=== PATIENT | female | born 1945 | race Caucasian/White ===

== ENCOUNTER → 2018-04-09 | Outpatient (CLI) | payer OTHER ==
[~2018-04-09] MED LIST: CATAPRES0.2 MG PO; CO Q-10200 MG PO; GLUCOPHAGE850 MG PO; HYDROCHLOROTHIA25 MG PO; LANTUS 3 M100 UNITS1 SC; LISINOPRIL40 MG PO; PRAVASTATIN SOD20 MG PO; TOPROL XL200 MG PO
== END | disposition home or self-care (01) ==
LOC: EDSTATUS 08:00 → OPR 08:00
PROVIDERS: Internal Medicine
PROC: 0BBG3ZX Excision of Left Upper Lung Lobe, Percutaneous Approach, Diagnostic (ICD-10-PCS; principal; 2018-04-09)
DX: C34.12 Malignant neoplasm of upper lobe, left bronchus or lung (principal); R59.1 Generalized enlarged lymph nodes; F17.200 Nicotine dependence, unspecified, uncomplicated; E11.9 Type 2 diabetes mellitus without complications; Z79.4 Long term (current) use of insulin
CPT/HCPCS: 71045; 77012; 82948; 88305; 88341 TC; 88342 TC; J3010